=== PATIENT | female | born 1940 | race Caucasian/White ===

== ENCOUNTER → 2020-06-23 | Outpatient (CLI) | payer MEDICARE | LOC: NM 08:15 | DX: R10.11 Right upper quadrant pain (principal); R93.2 Abnormal findings on diagnostic imaging of liver and biliary tract | CPT/HCPCS: 78227; A9537; J2805 ==

== ENCOUNTER → 2020-10-09 | Outpatient (CLI) | payer MEDICARE | LOC: MRI 14:20 | DX: H53.431 Sector or arcuate defects, right eye (principal); G31.9 Degenerative disease of nervous system, unspecified | CPT/HCPCS: 36415; 70553; 82565; 84520; A9577 ==